=== PATIENT | female | born 1975 | race Caucasian/White ===

== ENCOUNTER 2020-10-01 13:04 | Inpatient (IN) ==
[2020-10-01 13:42] LABS: Appearance Urine Clear (Clear); Bacteria Urine Automated Negative (Negative); Bilirubin Urine Negative (Negative); Blood Urine 1+ (Negative); Color Urine Yellow; Epithelial Cell Urine Auto 0-5 /lpf (0-5); Glucose Urine UA Negative (Negative); Ketones Urine Negative (Negative); Leukocyte Esterase Urine Trace (Negative); Nitrite Urine Negative (Negative); Protein Urine Negative (Negative); RBC Urine Automated 0-4 /hpf (0-4); Specific Gravity Urine 1.005 (1.000-1.030); Urobilinogen Urine Negative (Negative)
--- NOTE | 2020-10-01 14:32 | Emergency Department Note ---
Impression & Plan Pyelonephritis, Back pain, Fever ED Provider Note NAME: MADELYN BARBA AGE: 45 SEX: F : 1975 ARRIVES VIA: Walk-In INFORMANT: Patient, ED PROVIDER(S): Reece Dillard MD Chief Complaint: Back pain, fever HPI: Patient states that she initially had some left-sided lower back pain beginning 2 Saturdays ago but this seemed to slightly dissipate over time and she thought this was secondary to weeding and doing outdoor work. The patient denies any very heavy lifting. The patient denies any trauma to the back. The patient denies any burning with urination and states that she has had a history of UTI/kidney infection but this seems worse. Patient states that while this seemed to dissipate this last Thursday yesterday she felt as though "a truck had struck her." Patient did have some associated frontal headache that feels like a stabbing sensation. Patient states that the back pain while it is left-sided radiates to the left flank. The patient did have fever 102 this morning. The patient did take Tylenol which only mildly made her symptoms little bit better. The patient states she still felt hungry but does have some associated nausea. Patient states that she is vaccinated for Covid. The patient denies any numbness, tingling or focal weakness. ROS: See HPI for pertinent positives and negatives. A total of 10 systems were reviewed and otherwise negative. Past medical history: See below Surgical history: See below Social history: See below Physical Exam: GENERAL: Mildly uncomfortable in appearance, wearing a mask. Non-toxic. EYE EXAM: Normal conjunctiva. PERRL, no anisocoria and EOM's grossly intact w/o pain. NECK: Supple, no nuchal rigidity, no adenopathy, non-tender. No signs of meningismus. LUNGS: Clear to auscultation. Normal chest wall mechanics. HEART: NSR, no MRG. ABDOMEN: Abdomen soft, non-tender, normo-active bowel sounds, no masses, no rebound or guarding. BACK: Left-sided lower CVA TTP without midline TTP or right-sided TTP. No overlying skin changes. SKIN: No rashes and no bruising. UPPER EXTREMITIES: Upper extremities are grossly normal. LOWER EXTREMITIES: Grossly normal, no edema. NEURO EXAM: A&O x3, cranial nerves II-XII grossly intact, normal speech, moves all 4 extremities on command w/o issue. No sensory deficits. Differential diagnoses: Viral syndrome, otitis, pharyngitis, pneumonia, influenza, meningitis, urinary tract infection, sepsis, bacteremia, as well as other pathologies. Course: Patient was seen and evaluated the bedside. Full history physical exam was performed. EKG interpreted by me Normal sinus rhythm, rate of 84, normal intervals, normal axis, no ST changes. Imaging Studies: See below Cardiac monitoring: An order was placed for continuous cardiac monitoring. The monitor shows a rate of 95 with sinus rhythm. MDM: Patient was seen due to concern for left-sided back discomfort headache and fever. The patient's blood work shows mild white count of 13. CT abdomen pelvis ordered along with IV fluids and antibiotics. The patient does have a likely pyelonephritis and cystitis. Given the patient has had 10 days of symptoms with fever and a white count that is per the on-call hospitalist Ana Maria Oconnell PA-C. The patient was admitted by Dr. Metzger. Past Med/Surg History Medical History (Updated 10/01/20 @ 17:21 by Reece Dillard MD) Holly's thyroiditis Surgical History H/O carpal tunnel repair Family History Other Adopted Social History Smoking Status: Never smoker Hx Alcohol Use: No Preferred Language: Somali marital status: Current Living Situation: Family current occupational status: employed Feels Safe at Home: Yes Allergies Allergies Allergy/AdvReac Type Severity Reaction Status Date / Time No Known Allergies Allergy Unverified 10/01/20 16:03 Home Meds Home Medications Medication Instructions Recorded Confirmed liothyronine 5 mcg tablet 5 mcg PO BID 02/22/19 10/01/20 bupropion HCl 150 mg PO BID 10/01/20 10/01/20 cetirizine [Zyrtec] 10 mg PO QAM 10/01/20 10/01/20 fluoxetine 10 mg PO QAM 10/01/20 10/01/20 levothyroxine [Synthroid] 125 mcg PO DAILYBB 10/01/20 10/01/20 pediatric multivitamin no.76 2 tab PO BID 10/01/20 10/01/20 [Flintstones Complete] Previous Rx's Medication Instructions Recorded CPAP Machine #1 [id number] 11/30/18 Results & Data (ED) Vital Signs Vital Signs - 24 hr 10/01/20 13:18 10/01/20 14:40 10/01/20 15:31 Temperature 37.5 C Temperature Source Temporal Artery Scan Pulse Rate 104 H Pulse Rate from SpO2 Sensor Pulse Rhythm Regular Pulse Strength Normal Respiratory Rate 20 Respiratory Effort / Characteristics Non-Labored Spontaneous Non-Labored Spontaneous Respiratory Depth Normal Respiratory Pattern Regular Blood Pressure 103/73 Blood Pressure Mean 83 Blood Pressure Position Sitting Pulse Oximetry 100 97 98 Oxygen Delivery Method Room Air Room Air Room Air Sepsis Recent Fever Within 48 Hours Yes Sepsis New/Unexplained Change in Mental Status No Sepsis Action Taken by Nursing No Action Required 10/01/20 15:32 10/01/20 16:30 Temperature Temperature Source Pulse Rate 95 H 81 Pulse Rate from SpO2 Sensor 95 H 81 Pulse Rhythm Pulse Strength Respiratory Rate 14 16 Respiratory Effort / Characteristics Respiratory Depth Respiratory Pattern Blood Pressure 101/71 94/56 L Blood Pressure Mean 81 68 Blood Pressure Position Pulse Oximetry 97 96 Oxygen Delivery Method Sepsis Recent Fever Within 48 Hours Sepsis New/Unexplained Change in Mental Status Sepsis Action Taken by [facility] Medications Current Medication List: was personally reviewed by me Laboratory Data Attestation: I reviewed the patient's lab results. Result diagrams: 10/01/20 15:07 10/01/20 15:07 Lab Results 10/01/20 10/01/20 10/01/20 Range/Units 13:25 15:07 15:07 WBC 13.77 H (4.8-10.8) K/uL RBC 4.69 (4.2-5.4) M/uL Hgb 15.2 (12.0-16.0) g/dL Hct 43.4 (37-47) % MCV 92.5 (80-100) fL MCH 32.4 (25-34) pg MCHC 35.0 (32-36) g/dL RDW Std Deviation 40.5 (36.4-46.3) fL RDW Coeff of García 12.0 (11.5-14.5) % Plt Count 278 (130-400) K/uL MPV 9.7 (7.4-10.4) fL Immature Gran % (Auto) 0.2 % Neut % (Auto) 81.7 % Lymph % (Auto) 10.8 % [place] % (Auto) 7.0 % Eos % (Auto) 0.2 % Baso % (Auto) 0.1 % Neut # (Auto) 11.24 H (1.4-6.5) K/uL Lymph # (Auto) 1.49 (1.2-3.4) K/uL [place] # (Auto) 0.96 H (0.11-0.59) K/uL Eos # (Auto) 0.03 (0-0.5) K/uL Baso # (Auto) 0.02 (0-0.2) K/uL Immature Gran # (Auto) 0.03 H (0.00-0.02) K/uL PT (9.0-12.0) Seconds INR (0.9-1.1) APTT (21.0-31.0) Seconds PTT Ratio Sodium 137 (136-145) mmol/L Potassium 3.7 (3.5-5.1) mmol/L Chloride 100 (98-107) mmol/L Carbon Dioxide 29 (21-32) mmol/L Anion Gap 8.0 (3-11) BUN 9 (7-18) mg/dl Creatinine 0.82 (0.6-1.2) mg/dl Est Cr Clr Drug Dosing 86.0 ml/min Est GFR ( Amer) 101.6 ml/min Est GFR (Non-Af Amer) 87.6 ml/min BUN/Creatinine Ratio 11.1 (10-20) Glucose 78 (70-99) mg/dl Lactate (0.4-2.0) mmol/L Calcium 9.3 (8.5-10.1) mg/dl Magnesium 1.8 (1.8-2.4) mg/dl Total Bilirubin 0.7 (0.2-1) mg/dl AST 30 (15-37) U/L ALT 41 (12-78) U/L Alkaline Phosphatase 86 (45-117) U/L Total Protein 8.3 H (6.4-8.2) gm/dl Albumin 4.0 (3.4-5.0) gm/dl Globulin 4.3 H (2.5-4.0) gm/dl Albumin/Globulin Ratio 0.9 (0.9-2) Specimen Hemolysis Urine Color Yellow Urine Appearance Clear (Clear) Urine pH 6.0 (4.5-7.5) Ur Specific [place] 1.005 (1.000-1.030) Urine Protein Negative (Negative) Urine Glucose (UA) Negative (Negative) Urine Ketones Negative (Negative) Urine Blood 1+ H (Negative) Urine Nitrite Negative (Negative) Urine Bilirubin Negative (Negative) Urine Urobilinogen Negative (Negative) Ur Leukocyte Esterase Trace H (Negative) Urine WBC (Auto) 1-5 (0-5) /hpf Urine RBC (Auto) 0-4 (0-4) /hpf U Hyaline Cast (Auto) 1-5 (0-5) /lpf U Epithel Cells (Auto) 0-5 (0-5) /lpf Urine Bacteria (Auto) Negative (Negative) 10/01/20 10/01/20 Range/Units 15:07 15:07 WBC (4.8-10.8) K/uL RBC (4.2-5.4) M/uL Hgb (12.0-16.0) g/dL Hct (37-47) % MCV (80-100) fL MCH (25-34) pg MCHC (32-36) g/dL RDW Std Deviation (36.4-46.3) fL RDW Coeff of García (11.5-14.5) % Plt Count (130-400) K/uL MPV (7.4-10.4) fL Immature Gran % (Auto) % Neut % (Auto) % Lymph % (Auto) % [place] % (Auto) % Eos % (Auto) % Baso % (Auto) % Neut # (Auto) (1.4-6.5) K/uL Lymph # (Auto) (1.2-3.4) K/uL [place] # (Auto) (0.11-0.59) K/uL Eos # (Auto) (0-0.5) K/uL Baso # (Auto) (0-0.2) K/uL Immature Gran # (Auto) (0.00-0.02) K/uL PT 10.0 (9.0-12.0) Seconds INR 1.0 (0.9-1.1) APTT 28.1 (21.0-31.0) Seconds PTT Ratio 1.1 Sodium (136-145) mmol/L Potassium (3.5-5.1) mmol/L Chloride (98-107) mmol/L Carbon Dioxide (21-32) mmol/L Anion Gap (3-11) BUN (7-18) mg/dl Creatinine (0.6-1.2) mg/dl Est Cr Clr Drug Dosing ml/min Est GFR ( Amer) ml/min Est GFR (Non-Af Amer) ml/min BUN/Creatinine Ratio (10-20) Glucose (70-99) mg/dl Lactate 1.0 (0.4-2.0) mmol/L Calcium (8.5-10.1) mg/dl Magnesium (1.8-2.4) mg/dl Total Bilirubin (0.2-1) mg/dl AST (15-37) U/L ALT (12-78) U/L Alkaline Phosphatase (45-117) U/L Total Protein (6.4-8.2) gm/dl Albumin (3.4-5.0) gm/dl Globulin (2.5-4.0) gm/dl Albumin/Globulin Ratio (0.9-2) Specimen Hemolysis Urine Color Urine Appearance (Clear) Urine pH (4.5-7.5) Ur Specific [place] (1.000-1.030) Urine Protein (Negative) Urine Glucose (UA) (Negative) Urine Ketones (Negative) Urine Blood (Negative) Urine Nitrite (Negative) Urine Bilirubin (Negative) Urine Urobilinogen (Negative) Ur Leukocyte Esterase (Negative) Urine WBC (Auto) (0-5) /hpf Urine RBC (Auto) (0-4) /hpf U Hyaline Cast (Auto) (0-5) /lpf U Epithel Cells (Auto) (0-5) /lpf Urine Bacteria (Auto) (Negative) Administered Medications Discontinued Medications Sodium Chloride (Nss 1000ml) 1,000 mls @ 999 mls/hr IV .Q1H1M WOLF Stop: 10/01/20 16:00 Last Admin: 10/01/20 15:09 Dose: 999 mls/hr Documented by: [id number] Ceftriaxone Sodium (Rocephin) 2,000 mg in 70 mls @ 140 mls/hr IV NOW STA Stop: 10/01/20 15:16 Last Admin: 10/01/20 15:10 Dose: 140 mls/hr Documented by: [id number] Sodium Chloride (Nss 1000ml) 1,000 mls @ 999 mls/hr IV .Q1H1M WOLF Stop: 10/01/20 17:00 Last Admin: 10/01/20 16:40 Dose: 999 mls/hr Documented by: [id number] Ioversol (Optiray 320 100ml) 93 ml IV ONCE ONE Stop: 10/01/20 16:09 Last Admin: 10/01/20 16:08 Dose: 93 ml Documented by: [id number] Ketorolac Tromethamine (Ketorolac 30 Mg/Ml Vial) 30 mg IV NOW STA Stop: 10/01/20 14:48 Last Admin: 10/01/20 15:09 Dose: 30 mg Documented by: [id number] Morphine Sulfate (Morphine Sulfate 4 Mg/Ml 1 Ml Carp\\Vial) 4 mg IV NOW STA Stop: 10/01/20 15:54 Last Admin: 10/01/20 16:40 Dose: 4 mg Documented by: [id number] Ondansetron HCl (Ondansetron Inj 2 Mg/Ml 2 Ml Vial) 4 mg IV NOW STA Stop: 10/01/20 14:52 Last Admin: 10/01/20 15:09 Dose: 4 mg Documented by: [id number] Imaging Data Radiologist's Impression: Chest X-Ray 10/01/20 13:24 XR chest 1V portable CLINICAL HISTORY: Fever COMPARISON STUDY: 01/04/2013 FINDINGS: The cardiac and mediastinal contours are normal. There is no evidence of focal pulmonary consolidation. There is no evidence of failure. No pleural effusions are visualized.[ IMPRESSION: No active disease in the chest. ACT 112: Negative or not required by law. Electronically signed by: Rasheed Verdin M.D. 10/01/2020 2:59 PM Abdomen/Pelvis CT 10/01/20 14:47 CT SCAN OF THE ABDOMEN AND PELVIS WITH IV CONTRAST CLINICAL HISTORY: Fever. Left flank pain. COMPARISON STUDY: Abdominal CT dated 01/05/2013. TECHNIQUE: Following the IV administration of 93 cc of Optiray 320, CT scan of the abdomen and pelvis is performed from the lung bases to the proximal femora. Images are reviewed in the axial, sagittal, and coronal planes. IV contrast was administered without complication. A dose lowering technique was utilized adhering to the principles of ALARA. CT DOSE: 472.12 mGycm FINDINGS: Lung bases: The heart is normal in size and without pericardial effusion. The lung bases are clear. Liver: The contrast-enhanced liver is normal in size, contour, and attenuation. There is minimal central intrahepatic biliary ductal dilatation. The hepatic veins and portal veins are patent. Gallbladder: Surgically absent noting clips in the gallbladder fossa. Spleen: Normal in size and attenuation. Pancreas: Unremarkable. Adrenal glands: Unremarkable. Kidneys: The contrast enhanced kidneys are normal in size and without hydronephrosis. There is heterogeneous enhancement of the left kidney with perfusion defects seen on axial images #164 and #173. Mild urothelial thickening and periureteric stranding is seen involving the left ureter. The right kidney enhances homogeneously. There is left-sided perinephric stranding. Abdominal vasculature: The abdominal aorta is normal in course and caliber. 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 There is moderate colonic fecal retention. No bowel obstruction is identified. The appendix is well-visualized and normal. Peritoneum: There is trace perihepatic ascites, as well as a small volume of free fluid in the pelvis. No intraperitoneal free air is identified. Lymphadenopathy: None. Pelvic viscera: The bladder wall appears thickened and hyperemic. The uterus and adnexa are normal as visualized noting ovarian follicles. Skeletal structures: No lytic or blastic lesions are seen. IMPRESSION: 1. The bladder wall appears thickened and hyperemic. Additionally, there is ur othelial thickening and enhancement of the left ureter as well as heterogeneous enhancement and small perfusion defects of the left kidney. Findings are typical for cystitis with ascending urinary tract infection/left-sided pyelonephritis. Correlation with clinical findings and urinalysis will be essential. 2. There is trace nonspecific perihepatic ascites as well as a small volume of free fluid in the cul-de-sac. 3. There is postoperative change from previous Elizabeth-en-Y gastric bypass procedure. No bowel obstruction is seen. 4. Additional findings as above. ACT 112: Negative or not required by law. Electronically signed by: Oswald Robbins M.D. 10/01/2020 4:[address] 10/01/20 14:47 CT SCAN OF THE BRAIN WITHOUT IV CONTRAST CLINICAL HISTORY: Headache. COMPARISON STUDY: CT of the brain dated 01/04/2013. TECHNIQUE: Unenhanced axial CT scan of the brain is performed from the vertex to the skull base. A dose lowering technique was utilized adhering to the ciples tamika SERRANO. CT DOSE: 788.63 mGycm FINDINGS: Brain parenchyma: The brain parenchyma is normal in appearance. There is no hemorrhage, mass effect, or evidence of acute territorial ischemia by CT criteria. Martin-white matter differentiation is preserved. No extra-axial fluid collection is seen. Ventricles, sulci, cisterns: Normal in configuration. Intracranial vasculature: The visualized intracranial vasculature at the skull base is normal in appearance. Calvarium: Unremarkable. Sinuses and mastoids: The visualized paranasal sinuses are clear. The mastoid air cells are well pneumatized. Orbits: The bony orbits are grossly intact. IMPRESSION: No acute intracranial abnormality. ACT 112: Negative or not required by law. Electronically signed by: Oswald Robbins M.D. 10/01/2020 4:09 PM Discharge Plan Visit Data Chief Complaint: Fever Stated Complaint: FEVER, TIBIA PAIN, HEADACHE ED Provider: Reece Dillard Discharge Problem: Pyelonephritis, Back pain, Fever Forms Stand Alone Forms: My [employer] Prescriptions Prescriptions: No Action (DME) CPAP Machine Misc See Dose Instructions .ROUTE .MEDSUPPLY Qty: 1 RF: 0 liothyronine [Cytomel] 5 mcg tablet 5 mcg PO BID RF: 0 bupropion HCl 150 mg tablet sustained-release 12 hr 150 mg PO BID RF: 0 levothyroxine [Synthroid] 125 mcg tablet 125 mcg PO DAILYBB RF: 0 Zyrtec 10 mg Capsule 10 mg PO QAM RF: 0 Flintstones Complete Tablet,Chewable 2 tab PO BID RF: 0 fluoxetine 10 mg tablet 10 mg PO QAM RF: 0 Discharge Problem: Back pain Qualifiers: Back pain location: low back pain Chronicity: acute Back pain laterality: left Sciatica presence: unspecified whether sciatica present Qualified Code(s): M54.5 - Low back pain Fever Qualifiers: Fever type: unspecified Qualified Code(s): R50.9 - Fever, unspecified
[2020-10-01] MEDS ORDERED: KETOROLAC 30 MG/ML VIAL IV STA (14:47)
[2020-10-01] MEDS ORDERED: cefTRIAXone SODIUM 2,000 MG/70 ML BAG IV STA (14:47)
[2020-10-01] MEDS ORDERED: ONDANSETRON INJ 2 MG/ML 2 ML VIAL IV STA ×2 (14:51→17:19)
[2020-10-01] MEDS ORDERED: SODIUM CHLORIDE 0.9% 1000ML 1,000 ML IV SCH ×3 (15:00→22:04)
--- NOTE | 2020-10-01 15:00 | XRay Report ---
XR chest 1V portable CLINICAL HISTORY: Fever COMPARISON STUDY: 01/04/2013 FINDINGS: The cardiac and mediastinal contours are normal. There is no evidence of focal pulmonary co nsolidation. There is no evidence of failure. No pleural effusions are visualized.[ IMPRESSION: No active disease in the chest. ACT 112: Negative or not required by law. Electronically signed by: Rasheed Verdin M.D. 10/01/2020 2:59 PM
[2020-10-01 15:19] LABS: Basophils # (auto) 0.02 K/uL (0-0.2); Basophils % (auto) 0.1 %; Eosinophils # (auto) 0.03 K/uL (0-0.5); Eosinophils % (auto) 0.2 %; Hematocrit (blood only) 43.4 % (37-47); Hemoglobin 15.2 g/dL (12.0-16.0); Immature Granulocytes # (auto) 0.03 K/uL (0.00-0.02); Immature Granulocytes % (auto) 0.2 %; Lymphocytes # (auto) 1.49 K/uL (1.2-3.4); Lymphocytes % (auto) 10.8 %; Mean Corpuscular Hemoglobin 32.4 pg (25-34); Mean Corpuscular Volume 92.5 fL (80-100); Mean Platelet Volume 9.7 fL (7.4-10.4); Monocytes # (auto) 0.96 K/uL (0.11-0.59); Neutrophils # (auto) 11.24 K/uL (1.4-6.5); Neutrophils % (auto) 81.7 %; Platelet Count 278 K/uL (130-400); RDW Standard Deviation 40.5 fL (36.4-46.3); Red Blood Count 4.69 M/uL (4.2-5.4); White Blood Count 13.77 K/uL (4.8-10.8)
[2020-10-01 15:33] LABS: Partial Thromboplastin Ratio 1.1; Partial Thromboplastin Time 28.1 Seconds (21.0-31.0)
[2020-10-01 15:46] LABS: Albumin Globulin Ratio 0.9 (0.9-2); BUN Creatinine Ratio 11.1 (10-20); Bilirubin,Total 0.7 mg/dl (0.2-1); Calcium 9.3 mg/dl (8.5-10.1); Est GFR (African American) 101.6 ml/min; Est GFR (Non-African American) 87.6 ml/min; Globulin 4.3 gm/dl (2.5-4.0); Magnesium 1.8 mg/dl (1.8-2.4); Potassium 3.7 mmol/L (3.5-5.1); Total Protein 8.3 gm/dl (6.4-8.2)
[2020-10-01] MEDS ORDERED: MoRPHine SULFATE 4 MG/ML 1 ML CARP\\VIAL IV STA ×2 (15:53→18:42)
[2020-10-01] MEDS ORDERED: OPTIRAY 320 100ml IV ONE (16:08)
--- NOTE | 2020-10-01 16:10 | CT Scan Report ---
CT SCAN OF THE BRAIN WITHOUT IV CONTRAST CLINICAL HISTORY: Headache. COMPARISON STUDY: CT of the brain dated 01/04/2013. TECHNIQUE: Unenhanced axial CT scan of the brain is performed from the vertex to the skull base. A d ose lowering technique was utilized adhering to the principles of ALARA. CT DOSE: 788.63 mGycm FINDINGS: Brain parenchyma: The brain parenchyma is normal in appearance. There is no hemorrhage, mass effect, or evidence of acute territorial ischemia by CT criteria. Martin-white matter differentiation is preser jw. No extra-axial fluid collection is seen. Ventricles, sulci, cisterns: Normal in configuration. Intracranial vasculature: The visualized intracranial vasculature at the skull base is normal in appe arance. Calvarium: Unremarkable. Sinuses and mastoids: The visualized paranasal sinuses are clear. The mastoid air cells are well pneu matized. Orbits: The bony orbits are grossly intact. IMPRESSION: No acute intracranial abnormality. ACT 112: Negative or not required by law. Electronically signed by: Oswald Robbins M.D. 10/01/2020 4:09 PM
--- NOTE | 2020-10-01 16:25 | CT Scan Report ---
CT SCAN OF THE ABDOMEN AND PELVIS WITH IV CONTRAST CLINICAL HISTORY: Fever. Left flank pain. COMPARISON STUDY: Abdominal CT dated 01/05/2013. TECHNIQUE: Following the IV administration of 93 cc of Optiray 320, CT scan of the abdomen and pelvi s is performed from the lung bases to the proximal femora. Images are reviewed in the axial, sagittal , and coronal planes. IV contrast was administered without complication. A dose lowering technique wa s utilized adhering to the principles of ALARA. CT DOSE: 472.12 mGycm FINDINGS: Lung bases: The heart is normal in size and without pericardial effusion. The lung bases are clear. Liver: The contrast-enhanced liver is normal in size, contour, and attenuation. There is minimal cent ral intrahepatic biliary ductal dilatation. The hepatic veins and portal veins are patent. Gallbladder: Surgically absent noting clips in the gallbladder fossa. Spleen: Normal in size and attenuation. Pancreas: Unremarkable. Adrenal glands: Unremarkable. Kidneys: The contrast enhanced kidneys are normal in size and without hydronephrosis. There is hetero geneous enhancement of the left kidney with perfusion defects seen on axial images #164 and #173. Mil d urothelial thickening and periureteric stranding is seen involving the left ureter. The right kidne y enhances homogeneously. There is left-sided perinephric stranding. Abdominal vasculature: The abdominal aorta is normal in course and caliber. Stomach and bowel: Postoperative changes consistent with a history of Elizabeth-en-Y gastric bypass surger y. There is moderate colonic fecal retention. No bowel obstruction is identified. The appendix is we ll-visualized and normal. Peritoneum: There is trace perihepatic ascites, as well as a small volume of free fluid in the pelvis . No intraperitoneal free air is identified. Lymphadenopathy: None. Pelvic viscera: The bladder wall appears thickened and hyperemic. The uterus and adnexa are normal as visualized noting ovarian follicles. Skeletal structures: No lytic or blastic lesions are seen. IMPRESSION: 1. The bladder wall appears thickened and hyperemic. Additionally, there is urothelial thickening and enhancement of the left ureter as well as heterogeneous enhancement and small perfusion defects of t he left kidney. Findings are typical for cystitis with ascending urinary tract infection/left-sided p yelonephritis. Correlation with clinical findings and urinalysis will be essential. 2. There is trace nonspecific perihepatic ascites as well as a small volume of free fluid in the cul- de-sac. 3. There is postoperative change from previous Elizabeth-en-Y gastric bypass procedure. No bowel obstructi on is seen. 4. Additional findings as above. ACT 112: Negative or not required by law. Electronically signed by: Oswald Robbins M.D. 10/01/2020 4:24 PM
--- NOTE | 2020-10-01 17:36 | History & Physical Report ---
Date of Service October 01, 2020 Assessment & Plan (1) Pyelonephritis: This is a 45yo F with a PMH of Holly's thyroiditis, depression, h/o gastric bypass and other medical problems listed below who presents from [facility] with findings consistent with pyelonephritis. Presenting with T-max of 102.7, chills, lower back pain x 3 days UA with trace leuk esterase, h/o complicated UTIs in the past CT abd/pelvis with findings typical for cystitis with ascending urinary tract infection/left-sided pyelonephritis Given IV Rocephin in ER- plan to continue IV fluids, pain control (2) Depression: Continue fluoxetine, bupropion (3) Hypothyroidism: Continue levothyroxine, liothyronine (4) H/O gastric bypass: Continue multivitamin BID DVT Ppx: SQ Lovenox Code status: FULL PCP: Caitlyn Junior Dispo: Observation med/surg Patient seen in collaboration with Dr. Metzger. Please see addendum. History of Present Illness Chief Complaint: urinary sx, fever Primary Care Provider: Susan Junior, DO This is a 45yo F with a PMH of Holly's thyroiditis, depression, h/o gastric bypass and other medical problems listed below who presents from [facility] with fever and UTI. First developed left back pain 3 days ago but thought it was musculoskeletal due to gardening. Continue to feel fatigued with back pain yesterday and then woke up today with fever with T-max of 102.7 as well as chills. Has back pain left greater > right that she describes as sharp stabbing pain. Associated with headache and diffuse mild abdominal discomfort. Denies any dysuria, hematuria, pyuria, increased frequency or urgency. States she has a history of UTIs in the past that do not present with urinary symptoms but rather general malaise, headache and abdominal discomfort. Last UTI was approximately 9 months ago. Has been trying to drink adequate fluids. Decreased appetite. Denies any lightheadedness, visual changes, congestion, chest pain, palpitations, shortness of breath, diarrhea or constipation. Allergies Allergy/AdvReac Type Severity Reaction Status Date / Time No Known Allergies Allergy Unverified 10/01/20 16:03 Home Medications Medication Instructions Recorded Confirmed Type liothyronine 5 mcg tablet 5 mcg PO BID 02/22/19 10/01/20 History bupropion HCl 150 mg PO BID 10/01/20 10/01/20 History cetirizine [Zyrtec] 10 mg PO QAM 10/01/20 10/01/20 History fluoxetine 10 mg PO QAM 10/01/20 10/01/20 History levothyroxine [Synthroid] 125 mcg PO DAILYBB 10/01/20 10/01/20 History pediatric multivitamin no.76 2 tab PO BID 10/01/20 10/01/20 History [Flintstones Complete] Past Med/Surg History Medical History (Updated 10/01/20 @ 18:30 by Ana Maria Oconnell PA-C) Holly's thyroiditis Hypothyroidism (12/13/12) Surgical History (Updated 10/01/20 @ 18:31 by Ana Maria Oconnell PA-C) H/O carpal tunnel repair H/O gastric bypass S/P cholecystectomy Family History Other Adopted Social History Smoking Status: Never smoker Hx Alcohol Use: Yes Alcohol type: wine Alcohol Intake Frequency: 2-4 x/Month Hx Substance Use: No Preferred Language: Gambian marital status: Current Living Situation: Family current occupational status: employed Feels Safe at Home: Yes Review of Systems Review of Systems: At least ten systems reviewed and negative except as noted in the HPI. Physical Exam Physical Exam: General Appearance: WD/WN, vitals as above, NAD, sitting up in bed, pleasant, conversing easily Head: normocephalic, atraumatic Eyes: normal inspection, PERRL, conjunctivae normal, anicteric sclerae ENT: external ear and nose normal, oropharynx normal Neck: normal visual inspection, trachea midline, no thyromegaly Respiratory: normal respiratory effort, lungs clear to auscultation, no wheeze, rales, rhonchi. No accessory muscle use Cardiovascular: regular rate, rhythm, no murmur, normal peripheral pulses, no BLE edema. Vessels: no JVD Chest: normal inspection of chest Abdomen/GI: normal bowel sounds, soft, diffuse TTP of RUQ and LUQ. No guarding. No hepatosplenomegaly : No suprapubic tenderness. + L>R CVA tenderness to palpation Extremities/Musculoskeletal: no cyanosis or clubbing, extremities motor strength 5/5 Neurologic: PERRL, EOMI, accommodation nl, no face palsy, no dysarthria, CN's II-XI intact bilaterally and moves all extremities Psychiatric: A+Ox3, euthymic affect Skin: no rashes, normal color, warm/dry Results & Data Results & Data ([facility]) Vital Signs (Past 12 Hours) Vital Signs Temp Pulse Resp BP Pulse Ox 10/01/20 16:30 81 16 94/56 L 96 10/01/20 15:32 95 H 14 101/71 97 10/01/20 15:31 98 10/01/20 14:40 97 10/01/20 13:18 37.5 C 104 H 20 103/73 100 Laboratory Results Short CBC 10/01/20 Range/Units 15:07 WBC 13.77 H (4.8-10.8) K/uL Hgb 15.2 (12.0-16.0) g/dL Hct 43.4 (37-47) % Plt Count 278 (130-400) K/uL BMP 10/01/20 15:07 Sodium 137 Potassium 3.7 Chloride 100 Carbon Dioxide 29 BUN 9 Creatinine 0.82 Glucose 78 Calcium 9.3 Liver Function 10/01/20 Range/Units 15:07 Total Bilirubin 0.7 (0.2-1) mg/dl AST 30 (15-37) U/L ALT 41 (12-78) U/L Alkaline Phosphatase 86 (45-117) U/L Albumin 4.0 (3.4-5.0) gm/dl Urine 10/01/20 Range/Units 13:25 Urine Color Yellow Urine Appearance Clear (Clear) Urine pH 6.0 (4.5-7.5) Ur Specific [place] 1.005 (1.000-1.030) Urine Protein Negative (Negative) Urine Glucose (UA) Negative (Negative) Diagnostic Findings Chest X-Ray 10/01/20 13:24 XR chest 1V portable CLINICAL HISTORY: Fever COMPARISON STUDY: 01/04/2013 FINDINGS: The cardiac and mediastinal contours are normal. There is no evidence of focal pulmonary consolidation. There is no evidence of failure. No pleural effusions are visualized.[ IMPRESSION: No active disease in the chest. ACT 112: Negative or not required by law. Electronically signed by: Rasheed Verdin M.D. 10/01/2020 2:59 PM Abdomen/Pelvis CT 10/01/20 14:47 CT SCAN OF THE ABDOMEN AND PELVIS WITH IV CONTRAST CLINICAL HISTORY: Fever. Left flank pain. COMPARISON STUDY: Abdominal CT dated 01/05/2013. TECHNIQUE: Following the IV administration of 93 cc of Optiray 320, CT scan of the abdomen and pelvis is performed from the lung bases to the proximal femora. Images are reviewed in the axial, sagittal, and coronal planes. IV contrast was administered without complication. A dose lowering technique was utilized adhering to the principles of ALARA. CT DOSE: 472.12 mGycm FINDINGS: Lung bases: The heart is normal in size and without pericardial effusion. The lung bases are clear. Liver: The contrast-enhanced liver is normal in size, contour, and attenuation. There is minimal central intrahepatic biliary ductal dilatation. The hepatic veins and portal veins are patent. Gallbladder: Surgically absent noting clips in the gallbladder fossa. Spleen: Normal in size and attenuation. Pancreas: Unremarkable. Adrenal glands: Unremarkable. Kidneys: The contrast enhanced kidneys are normal in size and without hydronephrosis. There is heterogeneous enhancement of the left kidney with perfusion defects seen on axial images #164 and #173. Mild urothelial thickening and periureteric stranding is seen involving the left ureter. The right kidney enhances homogeneously. There is left-sided perinephric stranding. Abdominal vasculature: The abdominal aorta is normal in course and caliber. 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 There is moderate colonic fecal retention. No bowel obstruction is identified. The appendix is well-visualized and normal. Peritoneum: There is trace perihepatic ascites, as well as a small volume of free fluid in the pelvis. No intraperitoneal free air is identified. Lymphadenopathy: None. Pelvic viscera: The bladder wall appears thickened and hyperemic. The uterus and adnexa are normal as visualized noting ovarian follicles. Skeletal structures: No lytic or blastic lesions are seen. IMPRESSION: 1. The bladder wall appears thickened and hyperemic. Additionally, there is urothelial thickening and enhancement of the left ureter as well as hetero geneous enhancement and small perfusion defects of the left kidney. Findings are typical for cystitis with ascending urinary tract infection/left-sided pyelonephritis. Correlation with clinical findings and urinalysis will be essential. 2. There is trace nonspecific perihepatic ascites as well as a small volume of free fluid in the cul-de-sac. 3. There is postoperative change from previous Elizabeth-en-Y gastric bypass procedure. No bowel obstruction is seen. 4. Additional findings as above. ACT 112: Negative or not required by law. Electronically signed by: Oswald Robbins M.D. 10/01/2020 4:[address] 10/01/20 14:47 CT SCAN OF THE BRAIN WITHOUT IV CONTRAST CLINICAL HISTORY: Headache. COMPARISON STUDY: CT of the brain dated 01/04/2013. TECHNIQUE: Unenhanced axial CT scan of the brain is performed from the vertex to the skull base. A dose lowering technique was utilized adhering to the principles of ALARA. CT DOSE: 788.63 mGycm FINDINGS: Brain parenchyma: The brain parenchyma is normal in appearance. There is no hemorrhage, mass effect, or evidence of acute territorial ischemia by CT criteria. Martin-white matter differentiation is preserved. No extra-axial fluid collection is seen. Ventricles, sulci, cisterns: Normal in configuration. Intracranial vasculature: The visualized intracranial vasculature at the skull base is normal in appearance. Calvarium: Unremarkable. Sinuses and mastoids: The visualized paranasal sinuses are clear. The mastoid air cells are well pneumatized. Orbits: The bony orbits are grossly intact. IMPRESSION: No acute intracranial abnormality. ACT 112: Negative or not required by law. Electronically signed by: Oswald Robbins M.D. 10/01/2020 4:09 PM Supervising Physician Co-Signing Physician Notes I have seen and examined the patient and have discussed the case with the provider above. I agree with the assessment and plan as stated. The patient is a 45-year-old female who reports a history of atypical UTI symptoms in the past. She reports feeling malaise for the past week and having a significant fever with worsening malaise over the past 2 days. At urgent care this morning a urinalysis revealed trace leukoesterase and trace blood. On arrival to the ER she is afebrile and hemodynamically stable. She has a mild leukocytosis of [address] of the abdomen pelvis with IV contrast reveals evidence of a left-sided pyelonephritis. Clinically, she has significant abdominal pain and flank pain on the left side and a new appearance to her. She is tolerating p.o. Exam as above including significant referred pain to the left flank with of the abdomen and exquisite left flank tenderness. Agree with plan to start empiric Rocephin pending culture results and clinical improvement along with supportive care including IV fluids antiemetics and antipyretics as needed. Pain medications as needed. DO Yassine
[2020-10-01] MEDS ORDERED: POLYETHYLENE (MIRALAX) 17 GM PACK PO PRN (22:04)
[2020-10-01] MEDS ORDERED: KETOROLAC TROMETHAMINE 15 MG/ML VIAL IV PRN (22:04)
[2020-10-01] MEDS: ONDANSETRON INJ 2 MG/ML 2 ML VIAL IV PRN (22:22)
[2020-10-01] MEDS: MULTIVITAMIN CHEWABLE TAB PO SCH (22:43)
[2020-10-01] MEDS: LIOTHYRONINE SODIUM 5 MCG TAB PO SCH (22:43)
[2020-10-01] MEDS: buPROPion SR 150 MG TABCR PO SCH (22:44)
[2020-10-01] MEDS: ENOXAPARIN INJ 40 MG/0.4 ML SYR SQ SCH (22:44)
[2020-10-02] MEDS: MoRPHine SULFATE 2 MG/ML CARP IV PRN ×2 (03:06→07:55)
[2020-10-02] MEDS: ACETAMINOPHEN 325 MG TAB PO PRN ×4 (06:03→21:39)
[2020-10-02] MEDS: LEVOTHYROXINE SODIUM 125 MCG TABLET PO SCH (06:03)
[2020-10-02 06:09] LABS: Hematocrit (blood only) 34.3 % (37-47); Hemoglobin 11.6 g/dL (12.0-16.0); Mean Corpuscular Hgb Conc 33.8 g/dL (32-36); Mean Corpuscular Volume 94.8 fL (80-100); Mean Platelet Volume 10.2 fL (7.4-10.4); Platelet Count 205 K/uL (130-400); RDW Coefficient of Variation 11.9 % (11.5-14.5); RDW Standard Deviation 41.1 fL (36.4-46.3); Red Blood Count 3.62 M/uL (4.2-5.4); White Blood Count 8.46 K/uL (4.8-10.8)
[2020-10-02 06:43] LABS: BUN Creatinine Ratio 15.2 (10-20); Calcium 8.1 mg/dl (8.5-10.1); Creatinine Clr Calc Pharmacy 117.6 ml/min; Est GFR (African American) 129.4 ml/min; Est GFR (Non-African American) 111.6 ml/min; Potassium 3.3 mmol/L (3.5-5.1)
[2020-10-02] MEDS: ONDANSETRON INJ 2 MG/ML 2 ML VIAL IV PRN (08:02)
[2020-10-02] MEDS: CETIRIZINE HCL 10 MG TABLET PO SCH (08:55)
[2020-10-02] MEDS: cefTRIAXone SODIUM 1,000 MG in DEXTROSE 5% 50 ML IV SCH (08:55)
[2020-10-02] MEDS: buPROPion SR 150 MG TABCR PO SCH ×2 (08:55→21:32)
[2020-10-02] MEDS: FLUoxetine HCL 10 MG CAP PO SCH (08:55)
[2020-10-02] MEDS: MULTIVITAMIN CHEWABLE TAB PO SCH ×2 (08:56→21:32)
[2020-10-02] MEDS: LIOTHYRONINE SODIUM 5 MCG TAB PO SCH ×2 (08:56→21:31)
[2020-10-02] MEDS: NSS + 20MEQ KCL 20 MEQ/1,000 ML BAG IV SCH ×2 (10:25→18:17)
[2020-10-02] MEDS: KETOROLAC TROMETHAMINE 15 MG/ML VIAL IV PRN ×2 (10:26→19:54)
[2020-10-02] MEDS ORDERED: HYDROmorphone INJ 0.5 MG/0.5 ML SYR IV PRN (13:40)
--- NOTE | 2020-10-02 14:21 | CT Scan Report ---
CT SCAN OF THE ABDOMEN AND PELVIS WITHOUT CONTRAST CLINICAL HISTORY: Right flank and right lower quadrant pain. COMPARISON STUDY: 10/01/2020 TECHNIQUE: CT scan of the abdomen and pelvis was performed from the lung bases to the proximal femurs . Images are reviewed in the axial, sagittal, and coronal planes. IV contrast was not administered fo r this examination. A dose lowering technique was utilized adhering to the principles of ALARA. CT DOSE: 333.28 mGy.cm FINDINGS: Lower chest: There is a trace right pleural effusion. Liver: The unenhanced liver is normal in size, contour, and attenuation. There is no intrahepatic jeanmarie iary ductal dilatation. Gallbladder: Surgically absent Spleen: Normal in size and attenuation. Pancreas: Unremarkable. Adrenal glands: Unremarkable. Kidneys: There is an indeterminate 19 mm left renal lesion. It should be noted that the CT scan perfo rmed 10/01/2020, was consistent with pyelonephritis. No ureteral or bladder calculi are visualized. Th ere is minimal fullness of the left renal collecting system. Bowel: There are no transition zones indicate bowel obstruction. There are postsurgical changes are p rior gastric bypass. There is no evidence of acute diverticulitis. There is no evidence of acute appe ndicitis. Peritoneum: There is trace free pelvic fluid, likely physiologic. There is no free intraperitoneal ai r. Vasculature: The abdominal aorta is normal in course and caliber. Adenopathy: None. Pelvic viscera: The bladder, and pelvic viscera are unremarkable. Skeletal structures: No destructive osseous lesions are seen. IMPRESSION: 1. Trace right pleural effusion 2. Postsurgical changes of prior gastric bypass 2. No evidence of bowel obstruction. No evidence of free air 4. Normal appendix. No evidence of acute diverticulitis 5. No renal, ureteral, or bladder calculi identified 6. Minimal fullness of the left renal collecting system. Indeterminate 19 mm left renal lesion. It sh ould be noted that the contrast-enhanced study performed the day prior revealed 7. Small amount of free pelvic fluid. Changes within the left kidney consistent with pyelonephritis. Clinical and imaging follow-up recommended. ACT 112: Negative or not required by law. Electronically signed by: Rasheed Verdin M.D. 10/02/2020 2:20 PM
--- NOTE | 2020-10-02 15:04 | Electrocardiogram Report ---
Test Reason : Blood Pressure : / mmHG Vent. Rate : 084 BPM Atrial Rate : 084 BPM P-R Int : 118 ms QRS Dur : 070 ms QT Int : 338 ms P-R-T Axes : 050 059 027 degrees QTc Int : 399 ms Normal sinus rhythm Possible Left atrial enlargement Low voltage QRS Nonspecific ST abnormality Abnormal ECG When compared with ECG of 04-JAN-2013 20:13, No significant change was found Confirmed by Abiodun Atkinson ([id number]) on 10/02/2020 3:04:19 PM Referred By: REFERRED SELF Confirmed By:Abiodun Atkinson
--- NOTE | 2020-10-02 16:56 | Hospitalist Progress Note ---
Date of Service October 02, 2020 Assessment & Plan (1) Pyelonephritis: This is a 45yo F with a PMH of Holly's thyroiditis, depression, h/o gastric bypass and other medical problems listed below who presents from [facility] with findings consistent with pyelonephritis. Presenting with T-max of 102.7, chills, lower back pain x 3 days UA with trace leuk esterase, h/o complicated UTIs in the past CT abd/pelvis with findings typical for cystitis with ascending urinary tract infection/left-sided pyelonephritis Urine culture is pending Preliminary blood cultures have been negative Given IV Rocephin in ER- plan to continue IV fluids, pain control No fever and no chills no increase in white count Right-sided abdominal pain New since admission Repeat CT scan of the abdomen did not show any stones in ureter, kidney or and bladder and it did not show any evidence of acute appendicitis She will be reassured We will continue current pain medications and fluid administration (2) Depression: Continue fluoxetine, bupropion (3) Hypothyroidism: Continue levothyroxine, liothyronine (4) H/O gastric bypass: Continue multivitamin BID DVT Ppx: SQ Lovenox Code status: FULL PCP: Caitlyn Junior Dispo: Observation med/surg Admission and Anticipated Discharge Date Admission Date: October 02, 2020 Subjective 10/02/2020 The patient was seen and examined in medical floor She has been complaining of right mid abdominal pain which seems to be quite severe since this morning Denies any pain in the left side of the abdomen or in left renal angle No dysuria, no fever and no chills Review of Systems Review of Systems: All systems reviewed and are unremarkable except as noted below Gastrointestinal: + abdominal pain (Right loin and right lower quadrant); no nausea and no vomiting No guarding and no rigidity Physical Exam Physical Exam: Lying in bed with acute distress due to pain in the right side of the abdomen Constitutional: average body habitus; not ill appearing Eyes: PERRL, conjunctivae normal, anicteric sclerae ENMT: external ear and nose normal, oropharynx normal Neck: trachea midline, no thyromegaly Respiratory: no respiratory distress Auscultation: lungs clear to auscultation bilaterally Cardiovascular: Rate/Rhythm: regular rate and regular rhythm Heart Sounds: no murmur Extremities: no edema Gastrointestinal (Abdomen): Inspection/Auscultation: abdomen not distended Percussion/Palpation: + abdomen tender (Right line and right lower quadrant.Negative McBurney's sign) Musculoskeletal: No acute arthritis in any joint Neurologic: Alert, awake and oriented x3 Psychiatric: A+Ox3, euthymic affect Results & Data Results & Data ([facility]) Vital Signs (Past 12 Hours) Vital Signs Temp Pulse Resp BP Pulse Ox 10/02/20 15:18 36.5 C 59 L 16 106/68 98 10/02/20 07:08 37.1 C 57 L 16 103/68 98 Laboratory Results Short CBC 10/02/20 Range/Units 05:35 WBC 8.46 (4.8-10.8) K/uL Hgb 11.6 L D (12.0-16.0) g/dL Hct 34.3 L (37-47) % Plt Count 205 (130-400) K/uL BMP 10/02/20 05:35 Sodium 136 Potassium 3.3 L Chloride 104 Carbon Dioxide 29 BUN 9 Creatinine 0.60 Glucose 115 H Calcium 8.1 L Medications Administered Current Inpatient Medications Acetaminophen (Acetaminophen 325 Mg Tab) 650 mg PO Q4H PRN PRN Reason: pain/fever Stop: 10/31/20 22:03 Last Admin: 10/02/20 13:14 Dose: 650 mg Documented by: Bupropion HCl (Bupropion Sr 150 Mg Tabcr) 150 mg PO BID [facility] Stop: 10/31/20 22:03 Last Admin: 10/02/20 08:55 Dose: 150 mg Documented by: Cetirizine HCl (Cetirizine Hcl 10 Mg Tablet) [facility] [place] Stop: 11/01/20 08:59 Last Admin: 10/02/20 08:55 Dose: 10 mg Documented by: Enoxaparin Sodium (Enoxaparin Inj 40 Mg/0.4 Ml Syr) 40 mg SQ Q24H [facility] Stop: 10/31/20 22:59 Last Admin: 10/01/20 22:44 Dose: 40 mg Documented by: Fluoxetine HCl (Fluoxetine Hcl 10 Mg Cap) 10 mg PO QAM [facility] Stop: 11/01/20 08:59 Last Admin: 10/02/20 08:55 Dose: 10 mg Documented by: Hydromorphone HCl (Hydromorphone Inj 0.5 Mg/0.5 Ml Syr) 0.5 mg IV Q3H PRN PRN Reason: Pain Stop: 10/16/20 13:39 Last Admin: 10/02/20 14:45 Dose: 0.5 mg Documented by: Ceftriaxone Sodium 1,000 mg/ (Dextrose) 50 mls @ 100 mls/hr IV Q24H [facility]; P rotocol Stop: 10/12/20 08:59 Last Infusion: 10/02/20 13:10 Dose: Infused Documented by: Potassium Chloride/Sodium Chloride (Normal Saline W/20 Meq Kcl) 20 meq in 1,000 mls @ 100 mls/hr IV .Q10H [facility] Stop: 11/01/20 08:59 Last Admin: 10/02/20 10:25 Dose: 100 mls/hr Documented by: Ketorolac Tromethamine (Ketorolac Tromethamine 15 Mg/Ml Vial) 30 mg IV Q6H PRN PRN Reason: Pain Stop: 10/03/20 09:00 Last Admin: 10/02/20 10:26 Dose: 30 mg Documented by: Levothyroxine Sodium (Levothyroxine Sodium 125 Mcg Tablet) 125 mcg PO DAILYBB [facility] Stop: 11/01/20 06:29 Last Admin: 10/02/20 06:03 Dose: 125 mcg Documented by: Liothyronine Sodium (Liothyronine Sodium 5 Mcg Tab) 5 mcg PO BID [facility] Stop: 10/31/20 22:03 Last Admin: 10/02/20 08:56 Dose: 5 mcg Documented by: Multivitamins/Folic Acid/Vitamin C (Multivitamin Chewable Tab) 2 tab PO BID [facility] Stop: 10/31/20 22:03 Last Admin: 10/02/20 08:56 Dose: 2 tab Documented by: Ondansetron HCl (Ondansetron Inj 2 Mg/Ml 2 Ml Vial) 4 mg IV Q6H PRN PRN Reason: Nausea Stop: 10/31/20 22:03 Last Admin: 10/02/20 08:02 Dose: 4 mg Documented by: Polyethylene Glycol (Polyethylene (Miralax) 17 Gm Pack) 17 gm PO DAILY PRN PRN Reason: Constipation Stop: 10/31/20 22:03
[2020-10-02] MEDS: ENOXAPARIN INJ 40 MG/0.4 ML SYR SQ SCH (21:40)
[2020-10-03] MEDS: NSS + 20MEQ KCL 20 MEQ/1,000 ML BAG IV SCH (04:22)
[2020-10-03] MEDS: ACETAMINOPHEN 325 MG TAB PO PRN ×3 (04:25→13:42)
[2020-10-03] MEDS: LEVOTHYROXINE SODIUM 125 MCG TABLET PO SCH (05:33)
[2020-10-03 06:23] LABS: Basophils # (auto) 0.03 K/uL (0-0.2); Basophils % (auto) 0.4 %; Eosinophils # (auto) 0.29 K/uL (0-0.5); Eosinophils % (auto) 3.5 %; Hematocrit (blood only) 35.2 % (37-47); Hemoglobin 11.7 g/dL (12.0-16.0); Immature Granulocytes # (auto) 0.02 K/uL (0.00-0.02); Immature Granulocytes % (auto) 0.2 %; Lymphocytes % (auto) 19.3 %; Mean Corpuscular Hemoglobin 31.5 pg (25-34); Mean Corpuscular Hgb Conc 33.2 g/dL (32-36); Mean Corpuscular Volume 94.6 fL (80-100); Mean Platelet Volume 10.4 fL (7.4-10.4); Monocytes # (auto) 0.74 K/uL (0.11-0.59); Monocytes % (auto) 8.9 %; Neutrophils # (auto) 5.62 K/uL (1.4-6.5); Neutrophils % (auto) 67.7 %; Platelet Count 214 K/uL (130-400); RDW Coefficient of Variation 12.2 % (11.5-14.5); RDW Standard Deviation 41.5 fL (36.4-46.3); Red Blood Count 3.72 M/uL (4.2-5.4)
[2020-10-03 06:59] LABS: BUN Creatinine Ratio 15.4 (10-20); Calcium 8.6 mg/dl (8.5-10.1); Creatinine Clr Calc Pharmacy 130.6 ml/min; Est GFR (Non-African American) 115.6 ml/min; Potassium 4.2 mmol/L (3.5-5.1)
[2020-10-03] MEDS: cefTRIAXone SODIUM 1,000 MG in DEXTROSE 5% 50 ML IV SCH (08:48)
[2020-10-03] MEDS: buPROPion SR 150 MG TABCR PO SCH (08:48)
[2020-10-03] MEDS: FLUoxetine HCL 10 MG CAP PO SCH (08:49)
[2020-10-03] MEDS: CETIRIZINE HCL 10 MG TABLET PO SCH (08:49)
[2020-10-03] MEDS: MULTIVITAMIN CHEWABLE TAB PO SCH (08:50)
[2020-10-03] MEDS: LIOTHYRONINE SODIUM 5 MCG TAB PO SCH (08:50)
--- NOTE | 2020-10-03 13:08 | Hospitalist Progress Note ---
Date of Service October 03, 2020 Assessment & Plan (1) Pyelonephritis: This is a 45yo F with a PMH of Holly's thyroiditis, depression, h/o gastric bypass and other medical problems listed below who presents from [facility] with findings consistent with pyelonephritis. Presenting with T-max of 102.7, chills, lower back pain x 3 days UA with trace leuk esterase, h/o complicated UTIs in the past CT abd/pelvis with findings typical for cystitis with ascending urinary tract infection/left-sided pyelonephritis Urine culture is negative only growing 10,000 bacteria Preliminary blood cultures have been negative Given IV Rocephin in ER- plan to continue IV fluids, pain control No fever and no chills no increase in white count We will change antibiotic to oral Augmentin and continue for 10 more days given the diagnosis of pyelonephritis She will be discharged home this afternoon Probiotics were given and also a dose of Diflucan Right-sided abdominal pain New since admission Repeat CT scan of the abdomen did not show any stones in ureter, kidney or and bladder and it did not show any evidence of acute appendicitis She will be reassured We will continue current pain medications and fluid administration Pain is resolved (2) Depression: Continue fluoxetine, bupropion (3) Hypothyroidism: Continue levothyroxine, liothyronine (4) H/O gastric bypass: Continue multivitamin BID DVT Ppx: SQ Lovenox Code status: FULL PCP: Caitlyn Junior Dispo: Observation med/surg Admission and Anticipated Discharge Date Admission Date: October 02, 2020 Subjective 10/02/2020 The patient was seen and examined in medical floor She has been complaining of right mid abdominal pain which seems to be quite severe since this morning Denies any pain in the left side of the abdomen or in left renal angle No dysuria, no fever and no chills 10/03/2020 The patient was seen and examined in medical floor She remains free from any symptoms Denies any right-sided abdominal pain No symptoms from left-sided pyelonephritis No fever and/or chills Review of Systems Review of Systems: All systems reviewed and are unremarkable except as noted below Gastrointestinal: no abdominal pain (Right loin and right lower quadrant), no nausea and no vomiting No guarding and no rigidity Physical Exam Physical Exam: Lying in bed with acute distress due to pain in the right side of the abdomen Constitutional: average body habitus; not ill appearing Eyes: PERRL, conjunctivae normal, anicteric sclerae ENMT: external ear and nose normal, oropharynx normal Neck: trachea midline, no thyromegaly Respiratory: no respiratory distress Auscultation: lungs clear to auscultation bilaterally Cardiovascular: Rate/Rhythm: regular rate and regular rhythm Heart Sounds: no murmur Extremities: no edema Gastrointestinal (Abdomen): Inspection/Auscultation: abdomen not distended Percussion/Palpation: abdomen nontender (Right line and right lower quadrant.Negative McBurney's sign) Musculoskeletal: No acute arthritis in any joint Neurologic: Alert, awake and oriented x3. No focal sensory and motor deficit appreciated Psychiatric: A+Ox3, euthymic affect Results & Data Results & Data ([facility]) Vital Signs (Past 12 Hours) Vital Signs Temp Pulse Resp BP Pulse Ox 10/03/20 12:38 36.4 C L 54 L 15 109/75 100 10/03/20 06:47 36.4 C L 54 L 15 109/75 100 Laboratory Results Short CBC 10/03/20 Range/Units 05:49 WBC 8.30 (4.8-10.8) K/uL Hgb 11.7 L (12.0-16.0) g/dL Hct 35.2 L (37-47) % Plt Count 214 (130-400) K/uL BMP 10/03/20 05:49 Sodium 141 Potassium 4.2 D Chloride 110 H Carbon Dioxide 28 BUN 8 Creatinine 0.54 L Glucose 85 Calcium 8.6 Medications Administered Current Inpatient Medications Acetaminophen (Acetaminophen 325 Mg Tab) 650 mg PO Q4H PRN PRN Reason: pain/fever Stop: 10/31/20 22:03 Last Admin: 10/03/20 13:42 Dose: 650 mg Documented by: Amoxicillin/Clavulanate Potassium (Amoxicillin/Clavulanate 875 Mg Tab) 1 tab PO BIDM [facility] Stop: 10/13/20 16:59 Bupropion HCl (Bupropion Sr 150 Mg Tabcr) 150 mg PO BID [facility] Stop: 10/31/20 22:03 Last Admin: 10/03/20 08:48 Dose: 150 mg Documented by: Cetirizine HCl (Cetirizine Hcl 10 Mg Tablet) 10 mg PO QAM [facility] Stop: 11/01/20 08:59 Last Admin: 10/03/20 08:49 Dose: 10 mg Documented by: Enoxaparin Sodium (Enoxaparin Inj 40 Mg/0.4 Ml Syr) 40 mg SQ Q24H [facility] Stop: 10/31/20 22:59 Last Admin: 10/02/20 21:40 Dose: 40 mg Documented by: Fluoxetine HCl (Fluoxetine Hcl 10 Mg Cap) 10 mg PO QAM [facility] Stop: 11/01/20 08:59 Last Admin: 10/03/20 08:49 Dose: 10 mg Documented by: Hydromorphone HCl (Hydromorphone Inj 0.5 Mg/0.5 Ml Syr) 0.5 mg IV Q3H PRN PRN Reason: Pain Stop: 10/16/20 13:39 Last Admin: 10/02/20 14:45 Dose: 0.5 mg Documented by: Potassium Chloride/Sodium Chloride (Normal Saline W/20 Meq Kcl) 20 meq in 1,000 mls @ 100 mls/hr IV .Q10H [facility] Stop: 11/01/20 08:59 Last Admin: 10/03/20 04:22 Dose: 100 mls/hr Documented by: Levothyroxine Sodium (Levothyroxine Sodium 125 Mcg Tablet) 125 mcg PO DAILYBB [facility] Stop: 11/01/20 06:29 Last Admin: 10/03/20 05:33 Dose: 125 mcg Documented by: Liothyronine Sodium (Liothyronine Sodium 5 Mcg Tab) 5 mcg PO BID [facility] Stop: 10/31/20 22:03 Last Admin: 10/03/20 08:50 Dose: 5 mcg Documented by: Multivitamins/Folic Acid/Vitamin C (Multivitamin Chewable Tab) 2 tab PO BID [facility] Stop: 10/31/20 22:03 Last Admin: 10/03/20 08:50 Dose: 2 tab Documented by: Ondansetron HCl (Ondansetron Inj 2 Mg/Ml 2 Ml Vial) 4 mg IV Q6H PRN PRN Reason: Nausea Stop: 10/31/20 22:03 Last Admin: 10/02/20 08:02 Dose: 4 mg Documented by: Polyethylene Glycol (Polyethylene (Miralax) 17 Gm Pack) 17 gm PO DAILY PRN PRN Reason: Constipation Stop: 10/31/20 22:03
[2020-10-03] MEDS ORDERED: AMOXICILLIN/CLAVULANATE 875 MG TAB PO ONE (13:21)
--- NOTE | 2020-10-03 16:54 | Discharge Summary ---
Date of Service October 03, 2020 Admission HPI Per Admitting Provider This is a 45yo F with a PMH of Holly's thyroiditis, depression, h/o gastric bypass and other medical problems listed below who presents from [facility] with fever and UTI. First developed left back pain 3 days ago but thought it was musculoskeletal due to gardening. Continue to feel fatigued with back pain yesterday and then woke up today with fever with T-max of 102.7 as well as chills. Has back pain left greater > right that she describes as sharp stabbing pain. Associated with headache and diffuse mild abdominal discomfort. Denies any dysuria, hematuria, pyuria, increased frequency or urgency. States she has a history of UTIs in the past that do not present with urinary symptoms but rather general malaise, headache and abdominal discomfort. Last UTI was approximately 9 months ago. Has been trying to drink adequate fluids. Decreased appetite. Denies any lightheadedness, visual changes, congestion, chest pain, palpitations, shortness of breath, diarrhea or constipation. Admission Exam Per Admitting Provider Physical Exam: General Appearance: WD/WN, vitals as above, NAD, sitting up in bed, pleasant, conversing easily Head: normocephalic, atraumatic Eyes: normal inspection, PERRL, conjunctivae normal, anicteric sclerae ENT: external ear and nose normal, oropharynx normal Neck: normal visual inspection, trachea midline, no thyromegaly Respiratory: normal respiratory effort, lungs clear to auscultation, no wheeze, rales, rhonchi. No accessory muscle use Cardiovascular: regular rate, rhythm, no murmur, normal peripheral pulses, no BLE edema. Vessels: no JVD Chest: normal inspection of chest Abdomen/GI: normal bowel sounds, soft, diffuse TTP of RUQ and LUQ. No guarding. No hepatosplenomegaly : No suprapubic tenderness. + L>R CVA tenderness to palpation Extremities/Musculoskeletal: no cyanosis or clubbing, extremities motor strength 5/5 Neurologic: PERRL, EOMI, accommodation nl, no face palsy, no dysarthria, CN's II-XI intact bilaterally and moves all extremities Psychiatric: A+Ox3, euthymic affect Skin: no rashes, normal color, warm/dry Principal Diagnosis Pyelonephritis Discharge Exam Constitutional average body habitus; not ill appearing Eyes PERRL, conjunctivae normal, anicteric sclerae ENMT external ear and nose normal, oropharynx normal Neck trachea midline, no thyromegaly Respiratory no respiratory distress Auscultation: lungs clear to auscultation bilaterally Cardiovascular Rate/Rhythm: regular rate and regular rhythm Heart Sounds: no murmur Extremities: no edema Gastrointestinal (Abdomen) Inspection/Auscultation: abdomen not distended Percussion/Palpation: abdomen nontender (Right line and right lower quadrant.Negative McBurney's sign) Psychiatric A+Ox3, euthymic affect Discharge Data Allergies Allergy/AdvReac Type Severity Reaction Status Date / Time No Known Allergies Allergy Unverified 10/01/20 16:03 Consultations 10/01/20 17:19 ED Decision to Admit Stat Ordered Studies 10/01/20 14:47 CT abd pelvis IV con only Stat CT head/brain wo con Stat 10/02/20 13:38 CT abd pelvis wo con Urgent Hospital Course (1) Pyelonephritis: This is a 45yo F with a PMH of Holly's thyroiditis, depression, h/o gastric bypass and other medical problems listed below who presents from [facility] with findings consistent with pyelonephritis. Presenting with T-max of 102.7, chills, lower back pain x 3 days UA with trace leuk esterase, h/o complicated UTIs in the past CT abd/pelvis with findings typical for cystitis with ascending urinary tract infection/left-sided pyelonephritis Urine culture is negative only growing 10,000 bacteria Preliminary blood cultures have been negative Given IV Rocephin in ER- plan to continue IV fluids, pain control No fever and no chills no increase in white count We will change antibiotic to oral Augmentin and continue for 10 more days given the diagnosis of pyelonephritis She will be discharged home this afternoon Probiotics were given and also a dose of Diflucan Right-sided abdominal pain New since admission Repeat CT scan of the abdomen did not show any stones in ureter, kidney or and bladder and it did not show any evidence of acute appendicitis She will be reassured We will continue current pain medications and fluid administration Pain is resolved (2) Depression: Continue fluoxetine, bupropion (3) Hypothyroidism: Continue levothyroxine, liothyronine (4) H/O gastric bypass: Continue multivitamin BID DVT Ppx: SQ Lovenox Code status: FULL PCP: Caitlyn Junior Dispo: Observation med/surg Total Time Total Time Spent Total Time Spent (In Minutes): 35 minutes Total Time Includes: Examination of the Patient, Discharge Planning, Medication Reconciliation and Communication With Other Providers Discharge Plan Discharge Items Patient Disposition: Home - Self-Care Reason For Visit: PYELO Discharge Diagnosis: Pyelonephritis Condition on Discharge: Good Activity: Resume your previous activity Non-emergency contact: Primary Care Provider Call non-emergency contact if: you have any medication questions and your symptoms worsen Follow-up/Referrals: Susan Junior DO [Primary Care Provider] - (Date & Time 10/09/2020 10:00 AM Provider Susan Junior DO [facility] ) Diet: Regular Addtl Attending Provider Instructions: Please drink plenty of fluid Finish the course of antibiotic Pending Studies at Discharge: No Stand-Alone Forms: My [email or web address], Smoking Cessation Medications and DC Order Prescriptions: New amoxicillin-pot clavulanate [Augmentin] 875-125 mg tablet 1 tab PO BID Qty: 30 RF: 0 Lactinex 1 million cell tablet,chewable 1 tab PO TID Qty: 30 RF: 0 fluconazole [Diflucan] 150 mg tablet 150 mg PO DAILY Qty: 1 RF: 0 Continued liothyronine [Cytomel] 5 mcg tablet 5 mcg PO BID RF: 0 bupropion HCl 150 mg tablet sustained-release 12 hr 150 mg PO BID RF: 0 levothyroxine [Synthroid] 125 mcg tablet 125 mcg PO DAILYBB RF: 0 Zyrtec 10 mg Capsule 10 mg PO QAM RF: 0 Flintstones Complete Tablet,Chewable 2 tab PO BID RF: 0 fluoxetine 10 mg tablet 10 mg PO QAM RF: 0 Discharge Orders: Discharge Order (Routine); Ordered 10/03/20 Ordered By: Priyanka Villa Admission Data Admit Date/Time: 10/02/20 08:29 Attending Provider: Priyanka Villa Admit Provider: Dianelys Metzger Primary Care Provider: Susan Junior Other Providers: Dianelys Metzger Other Interventions: Discharge Summary Assessment (RN) Last Done: 10/03/20 12:38
[2020-10-03] MEDS ORDERED: AMOXICILLIN/CLAVULANATE 875 MG TAB PO SCH ×2 (17:00)
== END 2020-10-03 15:01 | disposition home or self-care (01) | DRG 690 ==
LOC: 3N 13:04 → ED 13:04 → SUATTDRO 17:47 → 3N 21:44